=== PATIENT | female | born 1970 | race Asian ===

== ENCOUNTER 2020-11-13 11:44 | Emergency (ER) | payer OTHER ==
[~2020-11-13] VITALS: Ht 154.9 cm; Wt 56.2 kg
[2020-11-13] MEDS ORDERED: NAPROSYN500 MG PO (13:17)
[2020-11-13] MEDS ORDERED: CYCLOBENZAPRINE5 MG PO (13:17)
== END 2020-11-13 13:23 | disposition home or self-care (01) ==
LOC: FSED 12:10
DX: S00.83XA Contusion of other part of head, initial encounter (principal); V43.52XA Car driver injured in collision with other type car in traffic accident, initial encounter; Y92.488 Other paved roadways as the place of occurrence of the external cause; E78.5 Hyperlipidemia, unspecified
CPT/HCPCS: 70450; 99283